=== PATIENT | male | born 1990 | race Caucasian/White ===

== ENCOUNTER 2023-08-02 13:56 | Inpatient (IN) | payer MEDICAID ==
[~2023-08-02] VITALS: Ht 182.9 cm; Wt 92.9 kg
[2023-08-02 15:01] LABS: BASOPHILS # (AUTO) 0.1 X10'3 (0-0.2); BASOPHILS % (AUTO) 1.4 % (0-1); EOSINOPHILS # (AUTO) 0.2 X10'3 (0-0.9); EOSINOPHILS % (AUTO) 2.1 % (0-6); HEMATOCRIT 41.4 % (42.0-52.0); HEMOGLOBIN 14.3 g/dl (14.0-17.9); LYMPHOCYTES # (AUTO) 2.1 X10'3 (1.1-4.8); LYMPHOCYTES % (AUTO) 21.6 % (21-51); MEAN CORPUSCULAR HEMOGLOBIN 28.8 PG (27.0-31.0); MEAN CORPUSCULAR HGB CONC 34.5 g/dL (33.0-36.5); MEAN CORPUSCULAR VOLUME 83.3 FL (78-98); MEAN PLATELET VOLUME 8.1 FL (7.4-10.4); MONOCYTES # (AUTO) 0.5 X10'3 (0-0.9); MONOCYTES % (AUTO) 5.5 % (2-12); NEUTROPHILS # (AUTO) 6.8 X10'3 (1.8-7.7); NEUTROPHILS % (AUTO) 69.4 % (42-75); PLATELET COUNT 331 X10'3 (140-440); RED BLOOD COUNT 4.97 X10'6 (4.70-6.10); RED CELL DISTRIBUTION WIDTH 12.9 % (11.5-14.5); WHITE BLOOD COUNT 9.7 X10'3 (4.5-11.0)
[2023-08-02 15:12] LABS: ALANINE AMINOTRANSFERASE 42 U/L (12-78); ALBUMIN 4.7 G/DL (3.4-5.0); ALBUMIN/GLOBULIN RATIO 1.3 (1.1-1.5); ALKALINE PHOSPHATASE 84 IU/L (46-116); ANION GAP 10 (8-16); ASPARTATE AMINO TRANSFERASE 32 U/L (10-37); BLOOD UREA NITROGEN 21 MG/DL (7-18); BUN/CREATININE RATIO 20.6 (10.0-20.0); CALCIUM 9.8 MG/DL (8.5-10.1); CHLORIDE 102 MMOL/L (99-107); CREATININE 1.02 MG/DL (0.60-1.10); GLUCOSE 128 MG/DL (70-104); POTASSIUM 4.1 MMOL/L (3.5-5.1); SODIUM 137 MMOL/L (135-145); TOTAL CARBON DIOXIDE 25.2 MMOL/L (24-32); TOTAL PROTEIN 8.3 G/DL (6.4-8.2); eCRCL 108 ML/MIN; eGFR 83 ML/MIN
[2023-08-02 15:21] LABS: ETHANOL < 10 MG/DL (<10); THYROID STIMULATING HORMONE 1.01 ulU/ml (0.34-4.50)
[2023-08-02 15:56] LABS: BILIRUBIN,URINE NEGATIVE (Neg); CLARITY,URINE SLIGHTLY CLOUDY (Clear); COLOR,URINE YELLOW (Yellow); GLUCOSE, URINE NEGATIVE (Neg); KETONES,URINE 15 mg/dl (Neg); LEUKOCYTE ESTERASE ,URINE NEGATIVE (Neg); NITRITES, URINE NEGATIVE (Neg); OCCULT BLOOD,URINE NEGATIVE (Neg); PROTEIN,URINE TRACE mg/dl (Neg); UROBILINOGEN,URINE 0.2 E.U/dL (0.2-1.0)
[2023-08-02 15:58] LABS: UA COLLECTION TYPE VOIDED
[2023-08-02 15:59] LABS: URINE AMPHETAMINE SCREEN NEGATIVE (Neg); URINE BARBITUATE SCREEN NEGATIVE (Neg); URINE BENZODIAZEPINES SCREEN NEGATIVE (Neg); URINE CANNABINOID SCREEN POSITIVE (Neg); URINE COCAINE SCREEN NEGATIVE (Neg); URINE METHADONE SCREEN NEGATIVE (Neg); URINE OPIATE SCREEN NEGATIVE (Neg); URINE PHENCYCLIDINE SCREEN NEGATIVE (Neg)
[2023-08-02 16:01] LABS: WBC,URINE 0-4 /HPF (0-4)
[2023-08-02 16:02] LABS: BACTERIA,URINE FEW /HPF (Neg); FINE GRANULAR CAST 0-3 /LPF (NEGATIVE); MUCUS STRANDS MANY /LPF (Neg); RBC,URINE 0-2 /HPF (0-2); SQUAMOUS EPITHELIAL CELL,UR FEW /LPF (FEW)
[2023-08-02] MEDS ORDERED: diphenhydrAMINE 50 mg/ml inj IM ONE (18:55)
[2023-08-02] MEDS ORDERED: ziprasidone IM 20mg inj **IM only IM ONE (18:55)
[2023-08-02] MEDS ORDERED: NO HOME MEDS (20:49)
[2023-08-03] MEDS ORDERED: haloperidol 5mg tablet PO ONE (09:20)
[2023-08-03] MEDS ORDERED: LORazepam 1 MG tablet PO ONE ×3 (09:35→16:55)
[2023-08-03] MEDS ORDERED: nicotine 21mg patch - 24 hr TD ONE (12:15)
[2023-08-03] MEDS ORDERED: OLANZapine 2.5MG tablet PO ONE (16:15)
[2023-08-03] MEDS ORDERED: loperamide 2mg capsule PO PRN (17:40)
[2023-08-03] MEDS ORDERED: magnesium hydroxide 30ml (MOM) UD suspension PO PRN (17:40)
[2023-08-03] MEDS ORDERED: mag hydrox/Alum hydrox/simeth 30ml oral suspension PO PRN (17:40)
[2023-08-03] MEDS ORDERED: acetaminophen 325mg tablet PO PRN (17:40)
[2023-08-03 17:45] VITALS: BP 147/88; PULSE 96; RESP 16; TEMP 98.9; O2SAT 99
[2023-08-03 19:00] VITALS: RESP 16; O2SAT 97
[2023-08-03 20:00] VITALS: BP 130/75; PULSE 74; RESP 15; TEMP 97.1; O2SAT 97
[2023-08-03] MEDS: NICOTINE POLACRILEX 2 MG LOZENGE BC PRN (23:32)
[2023-08-04] MEDS ORDERED: OLANZapine **IM** 10 mg inj. IM ONE (00:50)
[2023-08-04] MEDS ORDERED: LORazepam 1 MG tablet PO ONE (01:10)
[2023-08-04 07:30] VITALS: RESP 16
[2023-08-04] MEDS: nicotine 21mg patch - 24 hr TD SCH (08:00)
[2023-08-04 18:40] VITALS: RESP 16
[2023-08-04 19:51] LABS: BASOPHILS # (AUTO) 0.1 X10'3 (0-0.2); BASOPHILS % (AUTO) 1.4 % (0-1); EOSINOPHILS # (AUTO) 0.3 X10'3 (0-0.9); HEMATOCRIT 37.4 % (42.0-52.0); HEMOGLOBIN 12.8 g/dl (14.0-17.9); LYMPHOCYTES # (AUTO) 2.3 X10'3 (1.1-4.8); LYMPHOCYTES % (AUTO) 37.3 % (21-51); MEAN CORPUSCULAR HEMOGLOBIN 28.5 PG (27.0-31.0); MEAN CORPUSCULAR HGB CONC 34.2 g/dL (33.0-36.5); MEAN CORPUSCULAR VOLUME 83.3 FL (78-98); MEAN PLATELET VOLUME 7.7 FL (7.4-10.4); MONOCYTES # (AUTO) 0.4 X10'3 (0-0.9); MONOCYTES % (AUTO) 6.3 % (2-12); NEUTROPHILS # (AUTO) 3.1 X10'3 (1.8-7.7); PLATELET COUNT 264 X10'3 (140-440); RED BLOOD COUNT 4.49 X10'6 (4.70-6.10); RED CELL DISTRIBUTION WIDTH 13.1 % (11.5-14.5); WHITE BLOOD COUNT 6.2 X10'3 (4.5-11.0)
[2023-08-04 20:00] VITALS: BP 128/87; PULSE 79; RESP 20; TEMP 98.5; O2SAT 99
[2023-08-04] MEDS ORDERED: LORazepam 2 mg/ml vial IM ONE (20:00)
[2023-08-04 20:05] LABS: ANION GAP 4 (8-16); BILIRUBIN,TOTAL 0.4 MG/DL (0.1-1.0); BLOOD UREA NITROGEN 18 MG/DL (7-18); BUN/CREATININE RATIO 19.6 (10.0-20.0); CALCIUM 9.2 MG/DL (8.5-10.1); CHLORIDE 104 MMOL/L (99-107); CREATININE 0.92 MG/DL (0.60-1.10); GLUCOSE 107 MG/DL (70-104); SODIUM 138 MMOL/L (135-145); TOTAL CARBON DIOXIDE 30.3 MMOL/L (24-32); eCRCL 123 ML/MIN; eGFR > 90 ML/MIN
[2023-08-04 20:06] LABS: ALANINE AMINOTRANSFERASE 36 U/L (12-78); ALBUMIN 3.8 G/DL (3.4-5.0); ALBUMIN/GLOBULIN RATIO 1.1 (1.1-1.5); ALKALINE PHOSPHATASE 77 IU/L (46-116); ASPARTATE AMINO TRANSFERASE 32 U/L (10-37); CREATINE KINASE 610 U/L (39-308); TOTAL PROTEIN 7.3 G/DL (6.4-8.2)
[2023-08-04] MEDS: olanzapine 10mg tablet PO SCH ×3 (20:14→22:29)
[2023-08-04] MEDS ORDERED: ziprasidone IM 20mg inj **IM only IM ONE (20:50)
[2023-08-04] MEDS: LORazepam 1 MG tablet PO PRN (22:29)
[2023-08-04] MEDS: NICOTINE POLACRILEX 2 MG LOZENGE BC PRN (22:55)
[2023-08-04 23:06] VITALS: BP 128/84; PULSE 84; RESP 16; TEMP 98.5; O2SAT 98
[2023-08-05 07:00] VITALS: RESP 16
[2023-08-05 08:00] VITALS: RESP 16
[2023-08-05] MEDS: NICOTINE POLACRILEX 2 MG LOZENGE BC PRN ×3 (11:50→20:32)
[2023-08-05] MEDS: nicotine 21mg patch - 24 hr TD SCH (11:50)
[2023-08-05 19:30] VITALS: BP 138/81; PULSE 100; RESP 18; TEMP 97.9; O2SAT 97
[2023-08-05] MEDS: olanzapine 10mg tablet PO SCH (20:31)
[2023-08-06 07:00] VITALS: RESP 16; O2SAT 100
[2023-08-06 08:00] VITALS: BP 127/82; PULSE 100; RESP 16; TEMP 97.7; O2SAT 100
[2023-08-06] MEDS: NICOTINE POLACRILEX 2 MG LOZENGE BC PRN ×2 (08:21→16:59)
[2023-08-06] MEDS: nicotine 21mg patch - 24 hr TD SCH (08:21)
[2023-08-06 19:30] VITALS: BP 151/82; PULSE 106; RESP 20; TEMP 97.8; O2SAT 98
[2023-08-06] MEDS: ibuprofen 200mg tablet PO PRN (20:10)
[2023-08-06] MEDS: olanzapine 10mg tablet PO SCH (20:10)
[2023-08-07 07:00] VITALS: RESP 16; O2SAT 97
[2023-08-07 08:00] VITALS: BP 132/89; PULSE 105; RESP 16; TEMP 98.8; O2SAT 97
[2023-08-07] MEDS: nicotine 21mg patch - 24 hr TD SCH (08:15)
[2023-08-07] MEDS: NICOTINE POLACRILEX 2 MG LOZENGE BC PRN ×3 (08:15→20:09)
[2023-08-07] MEDS: LORazepam 1 MG tablet PO PRN (10:53)
[2023-08-07 19:00] VITALS: BP 155/82; PULSE 94; RESP 16; TEMP 98.6; O2SAT 97; O2SAT 98
[2023-08-07] MEDS ORDERED: hydrOXYzine 25 MG tablet PO PRN (19:20)
[2023-08-07] MEDS: olanzapine 10mg tablet PO SCH (20:05)
[2023-08-07] MEDS: ibuprofen 200mg tablet PO PRN (20:05)
[2023-08-08 07:00] VITALS: RESP 16; O2SAT 98
[2023-08-08] MEDS ORDERED: ondansetron 4mg rapidly disintigrating tab PO PRN (07:30)
[2023-08-08] MEDS: nicotine 21mg patch - 24 hr TD SCH (07:36)
[2023-08-08] MEDS: acetaminophen 325mg tablet PO PRN ×2 (07:36→16:42)
[2023-08-08 08:00] VITALS: BP 117/82; PULSE 97; RESP 16; TEMP 98.2; O2SAT 98
[2023-08-08] MEDS: NICOTINE POLACRILEX 2 MG LOZENGE BC PRN ×3 (09:09→19:58)
[2023-08-08 19:32] VITALS: BP 146/91; PULSE 100; RESP 18; TEMP 97.6; O2SAT 98
[2023-08-08] MEDS: LORazepam 1 MG tablet PO PRN (20:42)
[2023-08-08] MEDS: olanzapine 10mg tablet PO SCH (20:42)
[2023-08-09 07:00] VITALS: RESP 16; O2SAT 98
[2023-08-09] MEDS: ibuprofen 200mg tablet PO PRN (08:37)
[2023-08-09] MEDS: nicotine 21mg patch - 24 hr TD SCH (08:37)
[2023-08-09 08:49] VITALS: BP 130/79; PULSE 90; RESP 16; TEMP 97.4; O2SAT 98
[2023-08-09] MEDS ORDERED: atomoxetine 40 MG capsule PO ONE (09:30)
[2023-08-09] MEDS ORDERED: atomoxetine 25mg capsule PO ONE (09:45)
[2023-08-09] MEDS: NICOTINE POLACRILEX 2 MG LOZENGE BC PRN ×4 (09:48→21:47)
[2023-08-09 19:00] VITALS: RESP 16; O2SAT 99
[2023-08-09 20:02] VITALS: BP 122/83; PULSE 80; RESP 16; TEMP 97.5; O2SAT 99
[2023-08-09] MEDS: olanzapine 10mg tablet PO SCH (21:00)
[2023-08-10 07:00] VITALS: RESP 14; O2SAT 98
[2023-08-10 08:00] VITALS: BP 121/75; PULSE 74; RESP 14; TEMP 98.3; O2SAT 98
[2023-08-10] MEDS: nicotine 21mg patch - 24 hr TD SCH ×2 (08:00→12:01)
[2023-08-10] MEDS: NICOTINE POLACRILEX 2 MG LOZENGE BC PRN ×3 (09:06→15:30)
[2023-08-10] MEDS ORDERED: olanzapine 10mg tablet PO PRN (09:20)
[2023-08-10] MEDS: atomoxetine 25mg capsule PO SCH (09:36)
[2023-08-10 19:00] VITALS: RESP 18; O2SAT 99
[2023-08-10 20:13] VITALS: BP 106/82; PULSE 84; RESP 18; TEMP 98.2; O2SAT 99
[2023-08-11 07:00] VITALS: RESP 16; O2SAT 100
[2023-08-11] MEDS: nicotine 21mg patch - 24 hr TD SCH (07:55)
[2023-08-11] MEDS: atomoxetine 25mg capsule PO SCH (07:56)
[2023-08-11 08:00] VITALS: BP 125/83; PULSE 75; RESP 16; TEMP 98.2
[2023-08-11] MEDS ORDERED: sulfamethoxazole/trimethoprim DS (800/160mg) tablet PO SCH (11:30)
[2023-08-11] MEDS: NICOTINE POLACRILEX 2 MG LOZENGE BC PRN (12:45)
[2023-08-11] MEDS ORDERED: SULF1TAB45 PO (15:39)
[2023-08-11] MEDS ORDERED: OLAN10TA73 PO (15:39)
[2023-08-11] MEDS ORDERED: HYDR-3686 PO (15:39)
[2023-08-11] MEDS ORDERED: ATOM25CA6 PO (15:39)
[2023-08-11] MEDS ORDERED: NICO-687 TD (15:39)
[2023-08-11] MEDS ORDERED: NICO-907 BC (15:39)
== END 2023-08-11 17:00 | disposition home or self-care (01) | DRG 753 ==
LOC: ER 13:57 → ADULT MH 08-03 15:20
PROVIDERS: ADMIT Psychiatry & Neurology Psychiatry; ATTEND Psychiatry & Neurology Psychiatry
PROC: GZHZZZZ Group Psychotherapy (ICD-10-PCS; principal; 2023-08-07)
DX: F39 Unspecified mood [affective] disorder (principal); F33.3 Major depressive disorder, recurrent, severe with psychotic symptoms; F15.90 Other stimulant use, unspecified, uncomplicated; F17.210 Nicotine dependence, cigarettes, uncomplicated; F41.9 Anxiety disorder, unspecified; F43.10 Post-traumatic stress disorder, unspecified; Z20.822 Contact with and (suspected) exposure to COVID-19; F90.2 Attention-deficit hyperactivity disorder, combined type; Z88.0 Allergy status to penicillin; Z90.79 Acquired absence of other genital organ(s); Z59.00 Homelessness unspecified; F60.9 Personality disorder, unspecified
CPT/HCPCS: 36415; 70450; 80053; 80305; 80320; 81001; 82550; 83036; 84145; 84443; 85025; 85651; 87081; 87811; 96372; 99285; J1200; J2060; J3486; J3490